=== PATIENT | female | born 1960 | race Caucasian/White ===

== ENCOUNTER → 2017-10-02 11:15 | Outpatient (CLI) | payer OTHER, SELFPAY ==
[2017-10-11 13:19] LABS: HPV APTIMA, High Risk Negative (Negative); HPV Reflexed? YES, CHARGE PATIENT
== END ==
PROVIDERS: Visit Provider Obstetrics & Gynecology
DX: Z12.4 Encounter for screening for malignant neoplasm of cervix (principal)
CPT/HCPCS: 87624; 88175; G0145

== ENCOUNTER → 2020-02-03 11:00 | Outpatient (CLI) | payer OTHER, SELFPAY ==
[2020-02-09 18:07] LABS: HPV Reflexed? NOT INDICATED
== END | disposition home or self-care (01) ==
LOC: LABSPEC 02-04 08:44
PROVIDERS: Visit Provider Obstetrics & Gynecology
CPT/HCPCS: 88175; G0145